=== PATIENT | female | born 1965 | race Caucasian/White ===

== ENCOUNTER 2021-04-29 09:14 | Emergency (ER) | payer OTHER ==
[~2021-04-29] VITALS: Ht 167.6 cm; Wt 75.4 kg
[2021-04-29] MEDS ORDERED: IV NORMAL SALINE 1,000ML 1,000 ML IV ONE (09:30)
--- NOTE | 2021-04-29 09:41 | PHYS DOC ---
General Adult EDM: Chief Complaint: ABDOMINAL PAIN HPI: HPI: 56-year-old female presents with right lower quadrant abdominal pain. She has had this pain for 4 days. It comes and goes and seems to be worse with movement. It is currently a 2 out of 10. At its worst it is about an 8 out of 10. It is a sharp cramping sensation. Patient has a previous appendectomy and total hysterectomy. She denies fever or chills. She did think that she was constipated over the weekend so she took some laxatives and now has diarrhea. The pain is still there. Review of Systems: Review of Systems: Constitutional: Denies fever or chills Eyes: Denies change in visual acuity HENT: Denies nasal congestion or sore throat Respiratory: Denies cough or shortness of breath Cardiovascular: Denies chest pain or edema GI: Right lower quadrant abdominal pain. Denies nausea, vomiting, bloody stools or diarrhea : Denies dysuria Musculoskeletal: Denies back pain or joint pain Integument: Denies rash Neurologic: Denies headache, focal weakness or sensory changes Endocrine: Denies polyuria or polydipsia Lymphatic: Denies swollen glands Psychiatric: Denies depression or anxiety Current Medications: Current Meds: Current Medications Medications (Trade) Dose Ordered Sig/Anel Start Time Stop Time Status Last Admin Dose Admin Sodium Chloride 1,000 ml @ 1,000 mls/hr 1X ONCE 04/29/21 09:30 04/29/21 10:29 UNV Physical Exam: PE: Constitutional: Well developed, well nourished, no acute distress, non-toxic ap pearance. [] HENT: Normocephalic, atraumatic, bilateral external ears normal, oropharynx moist, no oral exudates, nose normal. [] Eyes: PERRLA, EOMI, conjunctiva normal, no discharge. [] Neck: Normal range of motion, no tenderness, supple, no stridor. [] Cardiovascular: Heart rate regular rhythm, no murmur [] Lungs & Thorax: Bilateral breath sounds clear to auscultation [] Abdomen: Bowel sounds normal, soft, Right sided tenderness, no masses, no pulsatile masses. [] Skin: Warm, dry, no erythema, no rash. [] Back: No tenderness, no CVA tenderness. [] Extremities: No tenderness, no cyanosis, no clubbing, ROM intact, no edema. [] Neurologic: Alert and oriented X 3, normal motor function, normal sensory function, no focal deficits noted. [] Psychologic: Affect normal, judgement normal, mood normal. [] EKG: EKG: [] Radiology/Procedures: Radiology/Procedures: [] Impressions: EXAM: Abdomen and pelvis CT with intravenous contrast. HISTORY: Right lower quadrant pain. TECHNIQUE: Computed tomographic images of the abdomen and pelvis were obtained following the administration of intravenous contrast. Multiplanar reformatting was performed. *One or more of the following individualized dose reduction techniques were utilized for this examination: 1. Automated exposure control. 2. Adjustment of the mA and/or kV according to patient size. 3. Use of iterative reconstruction technique. COMPARISON: None. FINDINGS: Evaluation of the lower thorax demonstrates lingular and bilateral basilar atelectasis. No hepatic lesion is seen. The gallbladder is surgically absent. The pancreas, spleen, adrenal glands and kidneys are unremarkable. The bladder is unremarkable. The uterus is absent. There is no suspicious adnexal lesion. There is focal fatty stranding within the right ventral peritoneum susceptibility superior to the cecum measuring approximately 3.3 cm in maximum dimension. There is no significant adjacent colonic wall thickening. There is no evidence of appendicitis. There is no bowel obstruction. The aorta is normal in caliber. There is no lymphadenopathy. There is no acute or suspicious osseous finding. IMPRESSION: 1. Focal fatty stranding within the right ventral peritoneum slightly superior to the cecum. The absence of adjacent colonic wall thickening favors changes due to acute epiploic appendagitis or fat infarction. 2. Otherwise, no acute abdominal or pelvic finding. Electronically signed by: Patty Louis MD (04/29/2021 10:47 AM) [id number] DICTATED AND SIGNED BY: PATTY LOUIS MD DATE: 04/29/21 1043 CC: JANET SCHMIDT DO; CAMACHO JONES MD ~MTH0 0 Heart Score: C/O Chest Pain: N/A Risk Factors: Risk Factors: DM, Current or recent (<one month) smoker, HTN, HLP, family history of CAD, obesity. Risk Scores: Score 0 - 3: 2.5% MACE over next 6 weeks - Discharge Home Score 4 - 6: 20.3% MACE over next 6 weeks - Admit for Clinical Observation Score 7 - 10: 72.7% MACE over next 6 weeks - Early Invasive Strategies Course & Med Decision Making: Course & Med Decision Making Pertinent Labs and Imaging studies reviewed. (See chart for details) The patient's labs are unremarkable. Her CT of the abdomen pelvis shows a likely epiploic appendagitis. We have given the patient pain medication in the ED and I will discharge her with a short course of [place]. This will resolve on its own. She is stable for discharge at this time. [] Dragon Disclaimer: Dragana Disclaimer: This electronic medical record was generated, in whole or in part, using a voice recognition dictation system. Departure Departure: Impression: Primary Impression: Epiploic appendagitis Disposition: HOME / SELF CARE / HOMELESS Condition: STABLE Referrals: CAMACHO JONES MD (PCP) Patient Instructions: Abdominal Pain, [id number] Scripts Hydrocodone/Acetaminophen (Hydrocodone-Acetamin 5-325 mg) 1 Each Tablet 1 EACH PO Q4-6HRS PRN for PAIN, #15 TAB Prov: JANET SCHMIDT DO 04/29/21 JANET SCHMIDT DO Apr 29, 2021 09:41
[2021-04-29] MEDS ORDERED: ONDANSETRON PF 4 MG/2 ML VIAL. IVP ONE (09:45)
[2021-04-29] MEDS ORDERED: MORPHINE SULFATE 4 MG/ML DISP.SYRIN. IV ONE (09:45)
[2021-04-29] MEDS ORDERED: IOHEXOL 300 MG/ML 75 ML VIAL. IV ONE (09:45)
[2021-04-29 10:09] LABS: BASO % 0 % (0-3); EOS # 0.1 x10^3/uL (0.0-0.7); EOS % 2 % (0-3); HEMATOCRIT 42.9 % (36.0-47.0); HEMOGLOBIN 14.6 g/dL (12.0-15.5); LYMPH # 1.4 x10^3/uL (1.0-4.8); LYMPH % 17 % (24-48); MEAN CORPUSCULAR HEMOGLOBIN 32 pg (25-35); MEAN CORPUSCULAR HGB CONC 34 g/dL (31-37); MEAN CORPUSCULAR VOLUME 94 fL (79-100); MONO # 0.7 x10^3/uL (0.0-1.1); MONO % 9 % (0-9); NEUT # 6.1 x10^3uL (1.8-7.7); NEUT % 73 % (31-73); PLATELET COUNT 319 x10^3/uL (140-400); RED BLOOD COUNT 4.57 x10^6/uL (3.50-5.40); RED CELL DISTRIBUTION WIDTH 12.4 % (11.5-14.5); WHITE BLOOD COUNT 8.3 x10^3/uL (4.0-11.0)
[2021-04-29 10:18] LABS: CALCIUM 9.1 mg/dL (8.5-10.1); CREATININE 0.8 mg/dL (0.6-1.0); GFR 73.7
[2021-04-29 10:25] LABS: ALBUMIN 3.9 g/dL (3.4-5.0); ALBUMIN/GLOBULIN RATIO 1.2 (1.0-1.7); TOTAL BILIRUBIN 0.6 mg/dL (0.2-1.0); TOTAL PROTEIN 7.2 g/dL (6.4-8.2)
--- NOTE | 2021-04-29 10:50 | RAD ---
EXAM: Abdomen and pelvis CT with intravenous contrast. HISTORY: Right lower quadrant pain. TECHNIQUE: Computed tomographic images of the abdomen and pelvis were obtained following the administ ration of intravenous contrast. Multiplanar reformatting was performed. *One or more of the following individualized dose reduction techniques were utilized for this examina tion: 1. Automated exposure control. 2. Adjustment of the mA and/or kV according to patient size. 3. Use of iterative reconstruction technique. COMPARISON: None. FINDINGS: Evaluation of the lower thorax demonstrates lingular and bilateral basilar atelectasis. No hepatic lesion is seen. The gallbladder is surgically absent. The pancreas, spleen, adrenal glands an d kidneys are unremarkable. The bladder is unremarkable. The uterus is absent. There is no suspicious adnexal lesion. There is focal fatty stranding within the right ventral peritoneum susceptibility superior to the cec um measuring approximately 3.3 cm in maximum dimension. There is no significant adjacent colonic wall thickening. There is no evidence of appendicitis. There is no bowel obstruction. The aorta is normal in caliber. There is no lymphadenopathy. There is no acute or suspicious osseous finding. IMPRESSION: 1. Focal fatty stranding within the right ventral peritoneum slightly superior to the cecum. The abse nce of adjacent colonic wall thickening favors changes due to acute epiploic appendagitis or fat infa rction. 2. Otherwise, no acute abdominal or pelvic finding. Electronically signed by: Patty Louis MD (04/29/2021 10:47 AM) [id number]
[2021-04-29] MEDS ORDERED: HYDR-2759 PO (11:48)
[2021-04-29 12:24] LABS: BILIRUBIN,URINE NEG (NEG); CLARITY,URINE CLEAR; COLOR,URINE YELLOW; GLUCOSE,URINE NEG (NEG)
[2021-04-29 12:25] LABS: BACTERIA,URINE 0 /HPF (0-FEW); NITRITE,URINE NEG (NEG); RBC,URINE 0 /HPF (0-2); SQUAMOUS EPITHELIAL CELL,UR FEW /LPF; UROBILINOGEN,URINE 0.2 mg/dL (0.2 mg/dL); WBC,URINE 0 /HPF (0-4)
[2021-04-29 12:28] VITALS: BP 128/74
== END 2021-04-29 12:48 | disposition home or self-care (01) ==
LOC: ER 09:14
DX: K63.89 Other specified diseases of intestine (principal)
CPT/HCPCS: 36415; 74177; 80053; 81001; 85025; 96361; 96374; 96375; 99285; J2270; J2405; J7030; Q9967